=== PATIENT | female | born 1930 | race Caucasian/White ===

== ENCOUNTER 2017-01-07 09:01 | Day surgery (SDC) | payer MEDICARE ==
[2017-01-07] MEDS ORDERED: LIDOCAINE 2% MDV (20MG/ML) 20ML VIAL IV ONE (10:01)
[2017-01-07] MEDS ORDERED: PROPOFOL 10 MG/ML VIAL IV ONE (10:01)
--- NOTE | 2017-01-27 16:10 | Operative Note ---
DATE OF SURGERY: 01/07/2017 OPERATION: COLONOSCOPY with random biopsy. PREOPERATIVE DIAGNOSIS: Chronic diarrhea of unclear etiology. POSTOPERATIVE DIAGNOSES: 1. [id number] sigmoid diverticulosis. 2. Rule out occult microscopic colitis. PROCEDURE: After informed consent was obtained from the patient, she was placed in the left lateral decubitus position in the endoscopy suite. She was sedated and monitored by the department of anesthesia. Digital rectal exam was unremarkable. A well-lubricated [id number] colonoscope was inserted into the rectum and advanced to the cecum and ultimately into the terminal ileum. The terminal ileum, cecum, and appendiceal orifice were unremarkable. Preparation quality was good to excellent. The ascending colon, transverse colon, descending colon, sigmoid colon, and rectum were carefully inspected. There were [id number] diverticular changes in the sigmoid colon. No evidence of colitis was otherwise identified. No inflammatory changes or polyps were seen. Random biopsies were obtained from the ascending colon, transverse colon, and descending colon. J-turn and forward views of the rectum and anorectum were unrevealing. The endoscope was straightened, the rectal ampulla deflated, and the endoscope was removed. RECOMMENDATIONS: We will await results of the patient's biopsies in particular to see if there is evidence of microscopic colitis. If not, I would treat her symptoms as irritable bowel and would consider the use of something like a Questran powder and/or an antispasmodic if needed. As always, thank you for allowing me to participate in the healthcare of your patients. CC: Dr. Kemar COBB
== END 2017-01-07 11:07 | disposition home or self-care (01) ==
LOC: HOP 09:01
PROVIDERS: ATTEND Internal Medicine Gastroenterology
DX: R19.4 Change in bowel habit (principal); Z86.010 Personal history of colon polyps; E78.00 Pure hypercholesterolemia, unspecified

== ENCOUNTER 2017-01-16 19:07 | Emergency (ER) | payer MEDICARE ==
--- NOTE | 2017-01-16 19:26 | Emergency Department Record ---
History of Present Illness - General Chief complaint: Poison lisa/oak/sumac exposure Stated complaint: POISEN LISA Source: Patient - History of Present Illness Initial comments: The patient developed poison lisa rash to her face, neck, arm,and waist line after removing it carefully from her garden on 01-14-16. She denies ANABEL or dysphagia. MD complaint: Rash - Related Data Home Medications Medication Instructions Recorded Confirmed Last Taken Alendronate Sodium 40 mg PO WEEKLY 01/16/17 01/16/17 Unknown Statin 01/16/17 Unknown Allergies Allergy/AdvReac Type Severity Reaction Status Date / Time codeine Allergy PT UNSURE Verified 02/15/14 07:55 OF REACTION Review of Systems Reviewed: No additional complaints except as noted below Constitutional: Reports: As per HPI. Denies: Chills, Fever, Malaise, Night sweats, Weakness, Weight change Eyes: Reports: As per HPI. Denies: Eye discharge, Eye pain, Photophobia, Vision change ENT: Reports: As per HPI. Denies: Congestion, Dental pain, Ear pain, Epistaxis , Hearing loss, Throat pain Respiratory: Reports: As per HPI. Denies: Cough, Dyspnea, Hemoptysis, Stridor, Wheezes Cardiovascular: Reports: As per HPI. Denies: Arrhythmia, Chest pain, Dyspnea on exertion, Edema, Murmurs, Orthopnea, Palpitations, Paroxysmal nocturnal dyspnea, Rheumatic Fever, Syncope Endocrine: Reports: As per HPI. Denies: Fatigue, Heat or cold intolerance, Polydipsia, Polyuria Gastrointestinal: Reports: As per HPI. Denies: Abdominal pain, Constipation, Diarrhea, Hematemesis, Hematochezia, Melena, Nausea, Vomiting Genitourinary: Reports: As per HPI. Denies: Abnormal menses, Discharge, Dyspareunia, Dysuria, Frequency, Hematuria, Incontinence, Retention, Urgency Musculoskeletal: Reports: As per HPI. Denies: Arthralgia, Back pain, Gout, Joint swelling, Myalgia, Neck pain Skin: Reports: As per HPI. Denies: Bruising, Change in color, Change in hair/ nails, Lesions, Pruritus, Rash Neurological: Reports: As per HPI. Denies: Abnormal gait, Confusion, Headache, Numbness, Paresthesias, Seizure, Tingling, Tremors, Vertigo, Weakness Psychiatric: Reports: As per HPI. Denies: Anxiety, Auditory hallucinations, Depression, Homicidal thoughts, Suicidal thoughts, Visual hallucinations Hematological/Lymphatic: Reports: As per HPI. Denies: Anemia, Blood Clots, Easy bleeding, Easy bruising, Swollen glands Past Medical History - SOCIAL HISTORY Smoking Status: Never smoker - RESPIRATORY Hx Respiratory Disorders: No - CARDIOVASCULAR Hx Cardio Disorders: No - NEURO Hx Neuro Disorders: Yes Hx TIA: Yes (possible event 2 weeks ago with garbled speech) - GI Hx GI Disorders: Yes Hx of Polyps: Yes - Hx Genitourinary Disorders: No - ENDOCRINE Hx Endocrine Disorders: No - MUSCULOSKELETAL Hx Musculoskeletal Disorders: No - PSYCH Hx Psych Problems: Yes Hx Depression: Yes - HEMATOLOGY/ONCOLOGY Hx Hematology/Oncology Disorders: Yes Hx Blood Transfusions: Yes Family Medical History Hx HTN: Mother Physical Exam - General General Appearance: Alert, Oriented x3, Cooperative, No acute distress - Head Head exam: Normal inspection - Eye Eye exam: Normal appearance, PERRL Pupils: Normal accommodation - ENT ENT exam: Normal exam, Mucous membranes moist, Normal external ear exam, Normal orophraynx, TM's normal bilaterally Ear exam: Normal external inspection. negative: External canal tenderness Nasal Exam: Normal inspection. negative: Discharge, Sinus tenderness Mouth exam: Normal external inspection, Tongue normal Teeth exam: Normal inspection. negative: Dental caries Throat exam: Normal inspection. negative: Tonsillar erythema, Tonsillar exudate - Neck Neck exam: Normal inspection, Full ROM. negative: Tenderness - Respiratory Respiratory exam: Normal lung sounds bilaterally. negative: Respiratory distress - Cardiovascular Cardiovascular Exam: Regular rate, Normal rhythm, Normal heart sounds - GI/Abdominal GI/Abdominal exam: Soft, Normal bowel sounds. negative: Tenderness - Rectal Rectal exam: Deferred - exam: Deferred - Extremities Extremities exam: Normal inspection, Full ROM, Normal capillary refill. negative: Tenderness - Back Back exam: Reports: Normal inspection, Full ROM. Denies: Muscle spasm, Rash noted, Tenderness - Neurological Neurological exam: Alert, Normal gait, Oriented X3, Reflexes normal - Psychiatric Psychiatric exam: Normal affect, Normal mood - Skin Skin exam: Dry, Intact, Normal color, Rash (rash consistent with poison lisa to lateral neck and jaw, right forearm, and left waistline, no cellulitis.), Warm Medical Decision Making - Management Options MDM Management: No Additional Work-up Planned Disposition Disposition: Discharge Clinical Impression: Poison lisa Disposition: Home, Self-Care Condition: (1) Good Instructions: Poison Lisa (ED) Additional Instructions: Scrub with fingernail brush beneath nails and over cuticles to remove resin. Take benadryl 50 mg every 6 hours for 5 days. May cause drowsiness. Avoid future exposure. Follow up with PCP as needed. Quality - Quality Measures Quality Measures: N/A - Blood Pressure Screening Does Patient Have Any of the Following: No Blood Pressure Classification: Pre-Hypertensive BP Reading Systolic Measurement: 191 Diastolic Measurement: 86 Screening for High Blood Pressure: < Pre-Hypertensive BP, F/U Documented > [ G8950] Pre-Hypertensive Follow-up Interventions: Follow-up with rescreen every year.
[2017-01-16] MEDS ORDERED: METHYLPREDNISOLONE PF 125MG/VIAL IM ONE (19:42)
[2017-01-16] MEDS ORDERED: DIPHENHYDRAMINE HCL 25 MG CAPSULE PO ONE (19:42)
--- NOTE | 2017-01-16 19:59 | Emergency Department Record ---
History of Present Illness - General Chief complaint: Poison lisa/oak/sumac exposure Stated complaint: POISEN LISA Time Seen by Provider: 01/16/17 19:36 Source: Patient Mode of Arrival: Ambulatory - History of Present Illness MD complaint: Rash Onset/Timin -: Days(s) Patient Tetanus UTD (within 5 yrs): No Location: Neck, RUE Consistency: Constant, Getting worse Improves with: None Worsens with: None Context: None Associated symptoms: Itching - Related Data Home Medications Medication Instructions Recorded Confirmed Last Taken Alendronate Sodium 40 mg PO WEEKLY 01/16/17 01/16/17 Unknown Statin 01/16/17 Unknown Previous Rx's Medication Instructions Recorded Methylprednisolone [Medrol Dose 4 mg PO DAILY #5 tab.ds.pk 01/16/17 Pack] Allergies Allergy/AdvReac Type Severity Reaction Status Date / Time codeine Allergy PT UNSURE Verified 02/15/14 07:55 OF REACTION Travel Screening - Travel/Exposure Within Last 30 Days Have you traveled within the last 30 days?: No Review of Systems Constitutional: Reports: As per HPI. Denies: Chills, Fever, Malaise, Night sweats, Weakness, Weight change Eyes: Reports: As per HPI. Denies: Eye discharge, Eye pain, Photophobia, Vision change ENT: Reports: As per HPI. Denies: Congestion, Dental pain, Ear pain, Epistaxis , Hearing loss, Throat pain Respiratory: Reports: As per HPI. Denies: Cough, Dyspnea, Hemoptysis, Stridor, Wheezes Cardiovascular: Reports: As per HPI. Denies: Arrhythmia, Chest pain, Dyspnea on exertion, Edema, Murmurs, Orthopnea, Palpitations, Paroxysmal nocturnal dyspnea, Rheumatic Fever, Syncope Endocrine: Reports: As per HPI. Denies: Fatigue, Heat or cold intolerance, Polydipsia, Polyuria Gastrointestinal: Reports: As per HPI. Denies: Abdominal pain, Constipation, Diarrhea, Hematemesis, Hematochezia, Melena, Nausea, Vomiting Genitourinary: Reports: As per HPI. Denies: Abnormal menses, Discharge, Dyspareunia, Dysuria, Frequency, Hematuria, Incontinence, Retention, Urgency Musculoskeletal: Reports: As per HPI. Denies: Arthralgia, Back pain, Gout, Joint swelling, Myalgia, Neck pain Skin: Reports: As per HPI. Denies: Bruising, Change in color, Change in hair/ nails, Lesions, Pruritus, Rash Neurological: Reports: As per HPI. Denies: Abnormal gait, Confusion, Headache, Numbness, Paresthesias, Seizure, Tingling, Tremors, Vertigo, Weakness Psychiatric: Reports: As per HPI. Denies: Anxiety, Auditory hallucinations, Depression, Homicidal thoughts, Suicidal thoughts, Visual hallucinations Hematological/Lymphatic: Reports: As per HPI. Denies: Anemia, Blood Clots, Easy bleeding, Easy bruising, Swollen glands Past Medical History - SOCIAL HISTORY Smoking Status: Never smoker - RESPIRATORY Hx Respiratory Disorders: No - CARDIOVASCULAR Hx Cardio Disorders: No - NEURO Hx Neuro Disorders: Yes Hx TIA: Yes (possible event 2 weeks ago with garbled speech) - GI Hx GI Disorders: Yes Hx of Polyps: Yes - Hx Genitourinary Disorders: No - ENDOCRINE Hx Endocrine Disorders: No - MUSCULOSKELETAL Hx Musculoskeletal Disorders: No - PSYCH Hx Psych Problems: Yes Hx Depression: Yes - HEMATOLOGY/ONCOLOGY Hx Hematology/Oncology Disorders: Yes Hx Blood Transfusions: Yes Family Medical History Hx HTN: Mother Course Vital Signs 01/16/17 19:14 Temperature 97.3 F L Pulse Rate 58 L Respiratory 18 Rate Blood Pressure 191/86 Pulse Ox 99 Disposition Clinical Impression: Poison lisa Disposition: Home, Self-Care Condition: (1) Good Instructions: Poison Lisa (ED) Additional Instructions: Scrub with fingernail brush beneath nails and over cuticles to remove resin. Take benadryl 50 mg every 6 hours for 5 days. May cause drowsiness. Avoid future exposure. Follow up with PCP as needed. Prescriptions: Methylprednisolone [Medrol Dose Pack] 4 mg PO DAILY #5 tab.ds.pk Forms: Patient Portal Access Quality - Quality Measures Quality Measures: N/A - Blood Pressure Screening Does Patient Have Any of the Following: No Blood Pressure Classification: Pre-Hypertensive BP Reading Systolic Measurement: 191 Diastolic Measurement: 86 Screening for High Blood Pressure: < Pre-Hypertensive BP, F/U Documented > [ G8950] Pre-Hypertensive Follow-up Interventions: Follow-up with rescreen every year.
== END 2017-01-16 20:03 | disposition home or self-care (01) ==
LOC: ER 19:07
DX: L23.7 Allergic contact dermatitis due to plants, except food (principal)
CPT/HCPCS: 96372; 99283; J2930

== ENCOUNTER 2019-03-02 08:45 | Emergency (ER) | payer MEDICARE ==
--- NOTE | 2019-03-02 09:00 | Emergency Department Record ---
History of Present Illness - General Chief Complaint: Fall Injury Stated Complaint: FALL Time Seen by Provider: 03/02/19 08:50 Source: Patient Mode of Arrival: Ambulatory Limitations: No limitations - History of Present Illness Initial Comments: The patient is here due to tripping and falling at home while exercising and injuring her facial area and lip. She feels her bite may be off but is having no trouble talking or moving her jaw. She also has R wrist and L knee pain. The patient did not hit her head and had no LOC or and no neck pain. The patient is not on blood thinners and her Td is UTD. MD Complaint: Fall Onset/Timin -: Hour(s) Fall From: Standing - Related Data Previous Rx's Medication Instructions Recorded Amoxicillin 500 mg PO TID #15 capsule 03/02/19 Allergies Allergy/AdvReac Type Severity Reaction Status Date / Time codeine Allergy PT UNSURE Verified 03/02/19 08:52 OF REACTION Review of Systems Constitutional: Denies: Chills, Fever Eyes: Denies: Eye discharge ENT: Denies: Congestion Respiratory: Denies: Cough, Dyspnea Past Medical History - SOCIAL HISTORY Smoking Status: Never smoker Drug Use: None - RESPIRATORY Hx Respiratory Disorders: No - CARDIOVASCULAR Hx Cardio Disorders: No - NEURO Hx Neuro Disorders: Yes Hx TIA: Yes (possible event 2 weeks ago with garbled speech) - GI Hx GI Disorders: Yes Hx of Polyps: Yes - Hx Genitourinary Disorders: No - ENDOCRINE Hx Endocrine Disorders: No - MUSCULOSKELETAL Hx Musculoskeletal Disorders: No - PSYCH Hx Psych Problems: Yes Hx Depression: Yes - HEMATOLOGY/ONCOLOGY Hx Hematology/Oncology Disorders: No Hx Blood Transfusions: Yes Family Medical History Hx HTN: Mother Physical Exam - General General Appearance: Alert, Oriented x3, Cooperative, No acute distress - Head Head exam: Atraumatic, Normocephalic, Normal inspection - Eye Eye exam: Normal appearance, PERRL, EOMI. negative: Conjunctival injection - ENT ENT exam: negative: Normal exam (There are superficial abrasions to the nose and maxillary area with very mild tenderness.) Mouth exam: Normal external inspection, Tongue normal, Other (The mandible is nontender with no pain to palpation. The patient appears to have no malloclusion and is able to open her mouth normally.). negative: Muffled voice, Trismus Teeth exam: Other (The R central tooth # 8 is minimally pushed back but stable. There is a laceration on the inside of the upper lip in the midline.). negative: Normal inspection Throat exam: Normal inspection. negative: Tonsillar erythema, Tonsillar exudate Image of Mouth/Teeth: 1 - 1.5 cm mucosal lip lac. - Neck Neck exam: Normal inspection, Full ROM. negative: Lymphadenopathy, Meningismus, Tenderness (There is no Cpine tenderness.) - Respiratory Respiratory exam: Normal lung sounds bilaterally. negative: Respiratory distress - Cardiovascular Cardiovascular Exam: Regular rate, Normal rhythm, Normal heart sounds - GI/Abdominal GI/Abdominal exam: Soft, Normal bowel sounds. negative: Tenderness - Extremities Extremities exam: Normal inspection, Full ROM, Normal capillary refill, Tenderness (There is mild dorsal R wrist tenderness and anterior L knee tenderness.) Image of Full Body: 1 - Tend. 2 - Tend. - Neurological Neurological exam: Alert, Normal gait, Oriented X3. negative: Abnormal gait, Altered, Motor sensory deficit - Skin Skin exam: negative: Rash Course - Reevaluation(s) Reevaluation #1: Procedure note: the 1.5 cm mucosal lip laceration was anesth. with TLE and washed with sterile saline. The lac was closed with 5 5.0 chromic gut sutures. There were no complications. 03/02/19 10:48 Reevaluation #2: The patient is doing very well at this time. She denies any [place] or neck pain and has full ROM of her neck with no discomfort. The patient does have her R wrist splinted and is able to get up and walk with no difficulty, [place], neck pain or back pain. We will put a consult into Dr. Castellanos and will have the patient F/U next week. 03/02/19 10:55 Medical Decision Making - Data Complexity MDM Data: X-Ray Ordered and/or Reviewed - Radiology Data Radiology results: Report reviewed (R wrist: nondisplaced distal radius fx intra-articular. Facial bones and L knee: Neg.) Disposition Disposition: Discharge Clinical Impression: Wrist fracture, right Qualifiers: Encounter type: initial encounter Fracture type: closed Qualified Code(s): S62.101A - Fracture of unspecified carpal bone, right wrist, initial encounter for closed fracture Disposition: Home, Self-Care Condition: (2) Stable Instructions: Wrist Fracture in Adults (ED), Fall Prevention for Older Adults (ED) Additional Instructions: Please ice and elevate the R wrist if needed and please see Dr. Castellanos in the [facility] next week as planned. Keep antibiotic ointment on the facial abrasions and eat a soft diet for 3 days. Please see your dentist CHULA and take Amoxicillin as directed. Return to the ER for any headache, confusion, nausea, vomiting, or balance issues. Prescriptions: Amoxicillin 500 mg PO TID #15 capsule Referrals: [facility] [Provider Group] Forms: Patient Portal Access Time of Disposition: 11:12 Quality - Quality Measures Quality Measures: N/A - Blood Pressure Screening View Details: Yes Does Patient Have Any of the Following: No Blood Pressure Classification: Hypertensive Reading Systolic Measurement: 163 Diastolic Measurement: 63 Screening for High Blood Pressure: < First Hypertensive BP, F/U Documented > [G8950] First Hypertensive Follow-up Interventions: Referral to alternative/primary care provider.
[2019-03-02] MEDS ORDERED: TOPICAL LIDOCAINE W/ EPI 5 ML TOP ONE (10:21)
--- NOTE | 2019-03-06 16:52 | RADIOLOGY REPORT ---
STUDY: Left knee 2 views. CLINICAL HISTORY: Knee pain with motion post fall. TECHNIQUE: AP and lateral views of the left knee. COMPARISON: Four views of the left knee dated 12/05/2013. FINDINGS: There is mild diffuse osteopenia. No acute fracture, dislocation, or destructive bone lesion is seen. There are mild osteoarthritic changes of the medial and patellofemoral compartments. There are enthesopathic spurs. There is enthesopathic spurring at the quadriceps tendon insertion on the upper pole of the patella. No joint effusion. No suspicious focal soft tissue abnormality. IMPRESSION: Osteopenia. No acute fracture, dislocation, nor joint effusion identified. Mild degenerative changes. MTDD
--- NOTE | 2019-03-06 16:52 | RADIOLOGY REPORT ---
STUDY: Right wrist 3 views. CLINICAL HISTORY: Diffuse pain with motion post fall. TECHNIQUE: Three views of the right wrist. COMPARISON: None. ENCOUNTER: Initial. FINDINGS: Diffuse osteopenia limits evaluation. Best seen on the oblique view as subtle obliquely oriented linear lucency extending from the anterolateral margin of the distal radial metaphysis distally to near the articular surface. A nondisplaced intraarticular fracture is suspected. No other osseous evidence of acute fracture nor dislocation. There are osteoarthritic changes scattered throughout the wrist and proximal hand. Changes are most pronounced within the 1st carpometacarpal joint where they are moderate to advanced. IMPRESSION: 1. Diffuse osteopenia limits evaluation. 2. Nondisplaced intraarticular fracture of the distal radius suspected best demonstrated on the oblique view. 3. Degenerative changes. MTDD
--- NOTE | 2019-03-06 16:52 | RADIOLOGY REPORT ---
STUDY: Facial bones. CLINICAL HISTORY: The patient states tripped and fell on sidewalk just prior to arrival. Pain in nose and lip. TECHNIQUE: Four views of the facial bones are obtained. COMPARISON: CT brain without contrast dated 08/16/2014. FINDINGS: There is normal bone mineralization. No convincing acute facial bone fracture is seen though the base of the anterior maxillary spine is not optimally visualized. The femoral sinuses are hypoplastic. The perineal sinuses are otherwise well developed and well aerated. The visualized mastoid air cells also appear well aerated. There is mild leftward deviation of the osseous nasal septum. The sella turcica is intact. There are [id number] degenerative changes of his [id number] cervical spine. IMPRESSION: 1. No convincing acute facial bone fracture identified. 2. No evidence of active sinusitis. 3. Mild leftward deviation of the osseous nasal septum. MTDD
== END 2019-03-02 11:48 | disposition home or self-care (01) ==
LOC: ER 08:45
DX: S52.571A Other intraarticular fracture of lower end of right radius, initial encounter for closed fracture (principal); S01.511A Laceration without foreign body of lip, initial encounter; S00.31XA Abrasion of nose, initial encounter; M25.561 Pain in right knee; R51 Headache; W01.10XA Fall on same level from slipping, tripping and stumbling with subsequent striking against unspecified object, initial encounter; Y93.A9 Activity, other involving cardiorespiratory exercise; Y92.009 Unspecified place in unspecified non-institutional (private) residence as the place of occurrence of the external cause
CPT/HCPCS: 12011; 70150; 70450; 72125; 99283; 99284

== ENCOUNTER 2019-03-02 16:37 | Emergency (ER) | payer MEDICARE ==
--- NOTE | 2019-03-02 16:50 | Emergency Department Record ---
History of Present Illness - General Chief Complaint: Headache Migraine Stated Complaint: RETURN VISIT -HEAD ACHES Time Seen by Provider: 03/02/19 16:42 Source: Patient, Family Mode of Arrival: Ambulatory Limitations: No limitations - History of Present Illness Initial Comments: The patient is here due to having intermittent CLEVELAND's since tripping and falling this AM. She was seen in the ER due to facial and lip trauma and had neg facial bone xrays. The patient did not have any significant head trauma, any LOC, nausea, vomiting, or neck pain after. She was sutured up in the ER and went home with a splinted R wrist due to a minor fx. Since she went home she has had intermittent mild CLEVELAND's but none at this time. Because of the CLEVELAND's she is now back for an xray. Complaint: Headache Onset/Timin -: Days(s) Location: Frontal Severity: Mild Severity scale (1-10): 4 Quality: Aching Consistency: Intermittent Improves With: Nothing Worsens With: None Treatments Prior to Arrival: None - Related Data Previous Rx's Medication Instructions Recorded Amoxicillin 500 mg PO TID #15 capsule 03/02/19 Allergies Allergy/AdvReac Type Severity Reaction Status Date / Time codeine Allergy PT UNSURE Verified 03/02/19 16:42 OF REACTION Travel Screening - Travel/Exposure Within Last 30 Days Have you traveled within the last 30 days?: No Review of Systems Constitutional: Denies: Chills, Fever Eyes: Denies: Eye discharge ENT: Denies: Congestion Respiratory: Denies: Cough, Dyspnea Past Medical History - SOCIAL HISTORY Smoking Status: Never smoker Alcohol Use: None Drug Use: None - RESPIRATORY Hx Respiratory Disorders: No - CARDIOVASCULAR Hx Cardio Disorders: No - NEURO Hx Neuro Disorders: Yes Hx TIA: Yes (possible event 2 weeks ago with garbled speech) - GI Hx GI Disorders: Yes Hx of Polyps: Yes - Hx Genitourinary Disorders: No - ENDOCRINE Hx Endocrine Disorders: No - MUSCULOSKELETAL Hx Musculoskeletal Disorders: No - PSYCH Hx Psych Problems: Yes Hx Depression: Yes - HEMATOLOGY/ONCOLOGY Hx Hematology/Oncology Disorders: No Hx Blood Transfusions: Yes Family Medical History Any Significant Family History?: Yes Hx HTN: Mother Physical Exam - General General Appearance: Alert, Oriented x3, Cooperative, No acute distress - Head Head exam: Atraumatic, Normocephalic, Normal inspection Image of Face/Head: 1 - Area of facial trauma and abrasions. - Eye Eye exam: Normal appearance, PERRL, EOMI - ENT ENT exam: TM's normal bilaterally. negative: Normal exam (mult facial contusions.) Teeth exam: negative: Normal inspection - Neck Neck exam: Normal inspection, Full ROM. negative: Tenderness - Respiratory Respiratory exam: Normal lung sounds bilaterally. negative: Respiratory distress - Cardiovascular Cardiovascular Exam: Regular rate, Normal rhythm, Normal heart sounds - Extremities Extremities exam: Tenderness (There does seem to be more tenderness to the R distal thumb with more bruising. There is good flexion and extension of the R DIP joint.). negative: Normal inspection - Neurological Neurological exam: Alert, Normal gait, Oriented X3. negative: Abnormal gait, Altered, Motor sensory deficit Course Vital Signs 03/02/19 16:46 Temperature 97.7 F Pulse Rate [ 64 Pulse Ox Probe] Respiratory 16 Rate Blood Pressure 175/74 [Left Arm] Pulse Ox 99 - Reevaluation(s) Reevaluation #1: The patient is doing well at this time. On further questioning she feels like she is having trouble remembering things when she is talking. On questioning now she is speaking clearly and answering all questions appropriately with no slurred speech or stuttering. The patient's head CT is normal and I did discuss the issues with the patient regarding the memory problem. The patient states she has had issues with her memory in the past similar to this and she feels the excitement from today could be what is causing her issue. Presently she is not having any memory or speech issue and does feel comfortable going home. 03/02/19 17:37 Reevaluation #2: The patient is doing very well at this time. She is speaking normally with no memory issues and she has no [place] or nausea or visual changes. I did discuss the CT reports with the patient and the need for F/U wit her PCP next week and to keep the Ortho appointment for next 03/02/19 18:23 Reevaluation #3: I did discuss the wrist and thumb fx's with Dr. Castellanos and he agree's with the plan to see the patient next week. We will change her splint to a thumb spica splint. 03/02/19 18:36 Medical Decision Making - Data Complexity MDM Data: X-Ray Ordered and/or Reviewed - Radiology Data Radiology results: Report reviewed (Head CT: Neg for any acute changes. Multiple chronic changes. Cervical Spine: Neg for acute changes.), Image reviewed (Thumb: distal phalynx fx with mild displacement.) Disposition Disposition: Discharge Clinical Impression: Wrist fracture, right Qualifiers: Encounter type: subsequent encounter Fracture type: closed Fracture healing: with routine healing Qualified Code(s): S62.101D - Fracture of unspecified carpal bone, right wrist, subsequent encounter for fracture with routine healing Disposition: Home, Self-Care Condition: (2) Stable Instructions: Head Injury (ED) Additional Instructions: Please take Tylenol for pain and do not take your aspirin for 3 days. Please see your family doctor next week for recheck and return to the ER for any worsening symptoms. Forms: Patient Portal Access Time of Disposition: 18:25 Quality - Quality Measures Quality Measures: N/A - Blood Pressure Screening View Details: Yes Does Patient Have Any of the Following: Active Dx of HTN Blood Pressure Classification: Hypertensive Reading Systolic Measurement: 175 Diastolic Measurement: 74 Screening for High Blood Pressure: Patient Exclusion, Hx of HTN [G9744]
--- NOTE | 2019-03-06 15:05 | CT SCAN REPORT ---
EXAM: CT OF THE HEAD WITHOUT CONTRAST HISTORY: HEAD TRAUMA. TECHNIQUE: Without administration of intravenous contrast, contiguous axial sections were obtained through the brain. Coronal and sagittal reformats. Comparison: 08/16/14. FINDINGS: Prominence of the CSF space is seen diffusely consistent with age related atrophy. Scattered foci of decreased attenuation present within the periventricular and subcortical white matter, in a patient of this age likely representing sequela of small vessel ischemic disease. 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 Likely chronic. The brain parenchyma is otherwise of normal appearance without mass effect or midline shift. The sulci, gyri, lombardo white junction, white matter, degenerative structures, and CSF spaces otherwise grossly unremarkable. The visualized portions of the paranasal sinuses, mastoids, and orbits reveals mild mucosal thickening within the bilateral maxillary sinuses. No skull fracture evident. IMPRESSION: NO ACUTE INTRACRANIAL PROCESS EVIDENT BY NONCONTRAST TECHNIQUE. DETAILS ABOVE. ER NOTIFIED BY VOICE CLIP. JOB NUMBER: [id number] MTDD
--- NOTE | 2019-03-06 15:09 | RADIOLOGY REPORT ---
EXAM: RIGHT THUMB, THREE VIEWS HISTORY: RIGHT THUMB PAIN AFTER FALL. TECHNIQUE: Frontal, lateral and oblique views of the right thumb were obtained. Comparison: None. FINDINGS: Limited lateral and oblique images due to overlying splint material and bony structures. There is a fracture present at the proximal metaphysis and epiphysis of the first distal phalanx. This extends to the articular surface. Mild distraction. There is associated soft tissue swelling. There is spurring at the interphalangeal joint of the thumb. Degenerative changes are also suggested at the first carpal metacarpal joint. IMPRESSION: FRACTURE OF THE FIRST DISTAL PHALANX. ER NOTIFIED BY VOICE CLIP. JOB NUMBER: [id number] MTDD
--- NOTE | 2019-03-06 15:21 | CT SCAN REPORT ---
EXAM: CT OF THE CERVICAL SPINE WITHOUT CONTRAST HISTORY: FALL WITH TRAUMA TO FACE. POSTERIOR NECK PAIN. TECHNIQUE: Thin collimation helical CT examination of the cervical spine was performed in the axial plane without intravenous contrast. Coronal and sagittal reformatted images are generated and reviewed. Comparison: No prior imaging of the cervical spine available for comparison. Same day noncontrast CT of the brain. FINDINGS: There is straightening of the normal cervical lordosis likely due to positioning or muscle spasm. Minimal anterolisthesis of C3 on C4 as well as C4 on C5 likely physiologic or the result of facet degenerative disease., The vertebral bodies are otherwise normal in alignment and height. No acute fracture, destructive bone lesion or prevertebral soft tissue swelling. Moderate hypertrophic degenerative changes of the atlantodental joint. Multilevel degenerative disk/degenerative end plate changes are identified most pronounced at the C5-C6 and c6-C7 levels where the changes are moderate in degree. No gross osseous cervical spinal stenosis nor gross neural foraminal narrowing. Multilevel bilateral facet arthropathy is present at the mid and upper levels. There is diffuse osteopenia. No suspicious cervical mass nor adenopathy. There is a hypodense nodule within the superior aspect of the left thyroid lobe measuring 6-7 mm. There may be additional isodense nodule more inferiorly. Further evaluation with thyroid ultrasound is recommended. No other evidence of cervical mass nor adenopathy. There is coarse calcification involving the origin of the left internal carotid artery. Biapical lung scarring is present. IMPRESSION: 1. NO ACUTE FRACTURE, SUSPICIOUS SUBLUXATION, OR PREVERTEBRAL SOFT TISSUE SWELLING. 2. MULTILEVEL DEGENERATIVE CHANGES, DISCUSSED ABOVE. MINIMAL ANTEROLISTHESIS OF C3 ON C4 WELL C4 ON C5 LIKELY PHYSIOLOGIC OR THE RESULT OF DEGENERATIVE DISEASE. 3. 6 MM HYPODENSE NODULE IN THE LEFT THYROID LOBE AND POSSIBLE ADDITIONAL ISODENSE LEFT THYROID LOBE NODULE. FURTHER EVALUATION WITH THYROID ULTRASOUND IS RECOMMENDED. 4. COARSE CALCIFICATION SUGGESTED AT THE ORIGIN OF THE LEFT INTERNAL CAROTID ARTERY. JOB NUMBER: [id number] [facility]
== END 2019-03-02 19:03 | disposition home or self-care (01) ==
LOC: ER 16:37
DX: R51 Headache (principal)
CPT/HCPCS: 70450; 72125